=== PATIENT | female | born 1995 | race Caucasian/White ===

== ENCOUNTER 2017-04-18 13:23 | Inpatient (IN) | payer SELFPAY ==
[~2017-04-18] VITALS: Ht 160 cm; Wt 67.5 kg
[2017-04-18] MEDS ORDERED: PRENAT PO (13:44)
[2017-04-18 13:45] VITALS: Ht 160 cm; Wt 67.5 kg
[2017-04-18 13:46] VITALS: BP 113/72; PULSE 92; RESP 18
[2017-04-18 14:11] LABS: BASOPHILS % 0.2 % (0.0-2.0); EOSINOPHILS % 0.2 % (0.0-7.0); HEMATOCRIT 35.8 % (37.0-47.0); HEMOGLOBIN 11.9 g/dl (12.0-16.0); LYMPHOCYTES # 2.3 10^3/ul (0.8-2.9); LYMPHOCYTES % 20.5 % (18.0-55.0); MEAN CORPUSCULAR HEMOGLOBIN 31.9 pg (29.0-33.0); MEAN CORPUSCULAR HGB CONC 33.2 g/dl (32.0-37.0); MEAN PLATELET VOLUME 12.5 fl (7.4-10.4); MONOCYTE # 0.6 10^3/ul (0.3-0.9); MONOCYTES % 5.6 % (0.0-13.0); NEUTROPHIL # 8.2 10^3/ul (1.6-7.5); NEUTROPHILS % 73.1 % (30.0-74.0); PLATELET COUNT 166 10^3/UL (140-415); RED BLOOD COUNT 3.73 10^6/ul (4.20-5.40); RED CELL DISTRIBUTION WIDTH 12.6 % (11.5-14.5); WHITE BLOOD COUNT 11.2 10^3/ul (4.8-10.8)
[2017-04-18 14:29] LABS: ADD UMIC YES; UR ASCORBIC ACID 20 mg/dL (NEGATIVE); UR BACTERIA FEW /HPF (NONE SEEN); UR BILIRUBIN (Dip) NEGATIVE (NEGATIVE); UR BLOOD (Dip) 2+ mg/dL (NEGATIVE); UR CLARITY CLOUDY (CLEAR); UR COLOR YELLOW (YELLOW); UR GLUCOSE (Dip) NEGATIVE (NEGATIVE); UR KETONES (Dip) 2+ mg/dL (NEGATIVE); UR LEUKOCYTE ESTERASE (Dip) 3+ Leu/ul (NEGATIVE); UR NITRITE (Dip) NEGATIVE (NEGATIVE); UR RBC 13 /HPF (0-5); UR SPECIFIC GRAVITY (Dip) 1.015 (1.003-1.030); UR SQUAMOUS EPITHELIAL CELL FEW /HPF (FEW); UR TOTAL PROTEIN (Dip) NEGATIVE (NEGATIVE); UR UROBILINOGEN (Dip) NEGATIVE (NEGATIVE)
[2017-04-18] MEDS ORDERED: LACTATED RINGER'S 1,000 ML IV ONE ×2 (15:00→20:25)
--- NOTE | 2017-04-18 15:28 | RADRPT ---
PROCEDURE: US OB biophysical profile. CLINICAL INDICATION: decreased movements, labor TECHNIQUE: Multiple sonographic images of the pelvis were obtained. The images were reviewed on a PACS workstation. COMPARISON: No prior studies are available for comparison. FINDINGS: There is a single viable intrauterine gestation. Cardiac activity is present with 138 beats per min [place]. There is a vertex presentation. The placenta is posterior. There is no evidence of placental abruption. There is a normal amount of amniotic fluid with an NEELIMA = 14.6 cm. Biophysical profile: movement 2/2 tone 2/2. breathing 2/2 NEELIMA 2/2 Total 03/06 RPTAT: AA . IMPRESSION: Normal biophysical profile. . .Sunny Luna MD, Date Time Electronically viewed and signed by .Sunny Luna MD, MD on 04/18/2017 15:27 .S/
--- NOTE | 2017-04-18 15:30 | RADRPT ---
PROCEDURE: US OB. CLINICAL INDICATION: Size and dates , labor TECHNIQUE: Multiple sonographic images of the pelvis and gravid uterus were obtained. The images were reviewed on a PACS workstation. COMPARISON: No prior studies are available for comparison. FINDINGS: There is a single viable intrauterine gestation. Cardiac activity is present with 148 beats per min [place]. There is a vertex presentation. The placenta is posterior fundal. There is no evidence of placental abruption. There is a normal amount of amniotic fluid with an NEELIMA = 14.6 cm. Measurements were made in order to determine age. The results are as follows: BPD =9.1 cm HC =32 cm AC =32.6 cm FL =6.7 cm Estimated gestational age of approximately 36 weeks and 0 days based on ultrasound measurements. Clinical age: 37 weeks and 3 days. The estimated date of delivery is 05/16/17, based on ultrasound measurements. The EFW = 2817 g, 22.3%, based on LMP age. RPTAT: AA IMPRESSION: Single viable intrauterine gestation of approximately 36 weeks and 0 days based on ultrasound measu rements. .Sunny Luna MD, Date Time Electronically viewed and signed by .Sunny Luna MD, on 04/18/2017 15:30 .S/
[2017-04-18] MEDS ORDERED: BUTORPHANOL 2 MG INJ IV ONE (16:00)
[2017-04-18] MEDS: LACTATED RINGER'S 1,000 ML IV SCH ×3 (18:59→22:50)
[2017-04-18] MEDS ORDERED: OXYTOCIN 30 UNITS/LR 500 ML IV SCH ×2 (19:00)
[2017-04-18] MEDS ORDERED: AMPICILLIN 2 GM/NS (PMX) 100 ML IV ONE (19:00)
[2017-04-18] MEDS ORDERED: OXYTOCIN 30 UNITS/LR 500 ML IV PRN (19:00)
[2017-04-18] MEDS ORDERED: MISOPROSTOL 200 MCG TAB PR PRN (19:00)
[2017-04-18] MEDS ORDERED: BUTORPHANOL 2 MG INJ IV PRN (19:00)
[2017-04-18] MEDS ORDERED: LIDOCAINE 1% (MPF) 30 ML INJ INJ PRN (19:00)
[2017-04-18] MEDS ORDERED: CARBOPROST 250 MCG INJ IM PRN (19:00)
[2017-04-18] MEDS ORDERED: METHYLERGONOVINE 0.2 MG INJ IM PRN (19:00)
[2017-04-18 19:44] LABS: INR 0.84; PROTIME 11.5 Sec (12.2-14.2); PT RATIO 0.9
[2017-04-18 19:45] LABS: PARTIAL THROMBOPLASTIN TIME 29.1 Sec (25.0-35.0)
[2017-04-18] MEDS ORDERED: CITRIC ACID/NA CITRATE 30 ML CUP ONE (20:22)
[2017-04-18] MEDS ORDERED: ONDANSETRON 4 MG INJ ONE (20:22)
[2017-04-18] MEDS ORDERED: ONDANSETRON 4 MG INJ IV STA (20:26)
[2017-04-18] MEDS ORDERED: FENTAnyl 2MCG/ML-ROPIV 0.2% 100 ML ONE (20:28)
[2017-04-18] MEDS ORDERED: NALBUPHINE HCL (10 MG/1 ML) INJ IV PRN (20:30)
[2017-04-18] MEDS ORDERED: FENTAnyl 2MCG/ML-ROPIV 0.2% 100 ML BAG EPI SCH (20:30)
[2017-04-18] MEDS ORDERED: CITRIC ACID/NA CITRATE 30 ML CUP PO ONE ×2 (20:30)
[2017-04-18] MEDS ORDERED: ONDANSETRON 4 MG INJ IV ONE (20:30)
[2017-04-18] MEDS ORDERED: NALOXONE (0.4 MG/ML) INJ IV PRN (20:30)
[2017-04-18] MEDS ORDERED: morphine 2 MG INJ IV PRN (20:30)
[2017-04-18] MEDS ORDERED: ONDANSETRON 4 MG INJ IV PRN (20:30)
[2017-04-18] MEDS ORDERED: DIPHENHYDRAMINE 50 MG INJ IV PRN (20:30)
[2017-04-18] MEDS ORDERED: TRIMETHOBENZAMIDE 100 MG/ML VIAL IM PRN (20:30)
[2017-04-18] MEDS ORDERED: LACTATED RINGER'S 1,000 ML IV PRN (20:30)
[2017-04-18] MEDS ORDERED: KETOROLAC 30 MG INJ IV PRN (20:30)
[2017-04-18] MEDS ORDERED: morphine 4 MG/ML VIAL IV PRN (20:30)
[2017-04-18] MEDS ORDERED: AMPICILLIN 1 GM/NS (PMX) 50 ML IV SCH (23:00)
[2017-04-18] MEDS ORDERED: DEXTROSE 5%-LR 1,000 ML IV PRN (23:30)
[2017-04-18 23:35] LABS: BARBITURATES Negative (NEGATIVE); BENZODIAZEPINES Negative (NEGATIVE); CANNABINOIDS Positive (NEGATIVE); COCAINE Negative (NEGATIVE); OPIATES Negative (NEGATIVE)
[2017-04-18] MEDS ORDERED: MINERAL OIL LIGHT 10 ML VIAL ONE (23:54)
[2017-04-19 00:45] LABS: CBV Base Excess -3.2 mmol/L; CBV COHb 0.1 %; CBV Total Hemglobin 18.4 g/dl; Cord Blood Venous pO2 11.1 mmHG (15.0-45.0); MODE ROOM AIR; MetHgb Cord Venous 1.8 %; Sample Type Blood venous
--- NOTE | 2017-04-19 00:54 | LDN ---
Date/Time of Note Date/Time of Note DATE: 04/19/17 TIME: 00:52 Delivery Summary 04/19/2017 . Patient had been managed during labor by primary OB. I was asked to perform the delivery due to nonavailability of the attending physician Weeks of Gestation term, Assisted Vaginal Delivery: Vacuum Placenta Delivered: Spontaneously Meconium: none Episiotomy: No Perineal laceration: 2 Laceration repair: Second-degree perineal and vaginal laceration repaired using 2-0 and 3-0 Vicryl Anesthesia type: Epidural Estimated blood loss: 300 Sponge & Needle done & correct: Yes All needle counts correct: Yes Any foreign bodies felt in the: No Problems: Delivery Information Sex Infant Sex: female Apgars 1 Minute: 8 5 Minute: 9 Suctioning Nose & mouth suctioned at josh: Yes Delee suction performed: Yes Umbilical Cord Umbilical cord with: 3 Vessels Cord presentations: nuchal cord Nuchal cord present X: 1 Cord Blood was obtained: Yes JACE ALMAZAN MD Apr 19, 2017 00:54
[2017-04-19] MEDS ORDERED: LANOLIN 7 GM TUBE TOP PRN (01:00)
[2017-04-19] MEDS ORDERED: METHYLERGONOVINE 0.2 MG INJ IM PRN (01:00)
[2017-04-19] MEDS ORDERED: OXYTOCIN 30 UNITS/LR 500 ML IV PRN (01:00)
[2017-04-19] MEDS ORDERED: hydrOXYzine HCL 100 MG INJ IM PRN (01:00)
[2017-04-19] MEDS ORDERED: DIPHENHYDRAMINE 25 MG CAP PO PRN (01:00)
[2017-04-19] MEDS ORDERED: CARBOPROST 250 MCG INJ IM PRN (01:00)
[2017-04-19] MEDS ORDERED: DIPHENHYDRAMINE 50 MG INJ IV PRN (01:00)
[2017-04-19] MEDS ORDERED: DIPHENHYDRAMINE 50 MG INJ IM PRN (01:00)
[2017-04-19] MEDS ORDERED: MISOPROSTOL 200 MCG TAB PR PRN (01:00)
[2017-04-19] MEDS ORDERED: ACETAMINOPHEN 325 MG TAB PO PRN (01:00)
[2017-04-19] MEDS ORDERED: HYDROCODONE/APAP (5/325) TAB PO PRN (01:00)
[2017-04-19] MEDS ORDERED: morphine 4 MG/ML VIAL IV PRN (01:00)
[2017-04-19] MEDS ORDERED: ONDANSETRON 4 MG INJ IV PRN (01:00)
[2017-04-19] MEDS ORDERED: METHYLERGONOVINE 0.2 MG TAB PO PRN (01:00)
[2017-04-19] MEDS ORDERED: WITCH HAZEL/GLYCERIN PAD PR PRN (01:00)
--- NOTE | 2017-04-19 01:11 | DELSUM ---
Delivery Summary A-C Datetime Report Generated by CPN: 04/19/2017 01:11 DELIVERY PERSONNEL Human Performance Professor: Roldan, Sabina MATERNAL INFORMATION Delivery Anesthesia: Epidural Medications in Delivery: 30 UNIT PITOCIN Estimated Blood Loss (ml): 300 Placenta Cultured: No Maternal Complications: None LABOR SUMMARY EDC: 05/06/2017 00:00 No. Babies in Womb: 1 Attempted: No Labor Anesthesia: Epidural LABOR INFORMATION Reason for Induction: Not Applicable Onset of Labor: 04/17/2017 04:00 Complete Dilatation: 04/18/2017 23:45 Oxytocin: N/A Group B Beta Strep: Not Done Antibiotics # of Doses: 2 Antibiotics Time of Last Dose: 04/18/2017 23:04 Steroids Given: None Reason Steroids Not Administered: Not Applicable Other Reason Not Administered: TERM MEMBRANES Membranes Rupture Method: Spontaneous Membranes Rupture Method: Artificial Rupture of Membranes: 04/18/2017 23:45 Length of Rupture (hr): 0.28 Amniotic Fluid Color: Clear Amniotic Fluid Color: Clear Amniotic Fluid Amount: Small Amniotic Fluid Amount: Small STAGES OF LABOR Stage 1 hr: 43 Stage 1 min: 45 Stage 2 hr: 0 Stage 2 min: 17 Stage 3 hr: 0 Stage 3 min: 5 Total Time in Labor hr: 44 Total Time in Labor min: 7 VAGINAL DELIVERY Episiotomy: None Laceration Extension: Second Degree Laceration Type: Perineal; Vaginal Laceration Repair: Yes Initial Vag Sponge Count: 10 Final Vag Sponge Count: 10 Initial Vag Sharps Count: 1 Final Vag Sharps Count: 3 Sponge Count Correct: Yes; Vaginal Sweep Performed Sharps Count Correct: Yes Count Comment: 2 SHARPS ADDED TO FIELD BABY A INFORMATION Infant Delivery Date/Time: 04/19/2017 00:02 Method of Delivery: Vaginal Born in Route : No : N/A Forceps: N/A Vacuum Extraction: Successful Shoulder Dystocia : N/A ASSISTED DELIVERY BABY A Indication for Assisted Delivery: BRADYCARDIA Catheter Prior to Procedure: Yes Station Vacuum/Forcep Apply: 3 Position Vacuum/Forcep Apply: Left Occipital Anterior Vacuum Number of Pulls: 3 Vacuum Number of PopOffs: 2 Vacuum Maximum Pressure Obtained: 75 Reduce Pressure btwn Ctx: Yes Vacuum Bathroom Tiling Professional: KIWI Total Time Vacuum Applied: 30 SECONDS SHOULDER DYSTOCIA BABY A Delivery Date/Time: 04/19/2017 00:02 PRESENTATION/POSITION BABY A Presentation: Cephalic Cephalic Presentation: Vertex Vertex Position: Left Occipital Anterior Breech Presentation: N/A PLACENTA INFORMATION BABY A Placenta Delivery Time : 04/19/2017 00:07 Placenta Method of Delivery: Spontaneous Placenta Status: Delivered SCORES BABY A Heart Rate 1 min: >100 bpm Resp Effort 1 min: Good Cry Reflex Irritability 1 min: Cough/Sneeze/Pulls Away Muscle Tone 1 min: Active Motion Color 1 min: Blue/Pale Resuscitation Effort 1 min: Tactile Stimulation SCORE 1 MIN: 8 Heart Rate 5 min: >100 bpm Resp Effort 5 min: Good Cry Reflex Irritability 5 min: Cough/Sneeze/Pulls Away Muscle Tone 5 min: Active Motion Color 5 min: Body [place], Extremit Blue Resuscitation Effort 5 min: Tactile Stimulation SCORE 5 MIN: 9 INFORMATION BABY A Gestational Age at Delivery: 37.4 Gestational Status: Early Term- 37- 38.6 Weeks Outcome : Liveborn Condition : Stable Sex: Female IDENTIFICATION/MEDS BABY A ID Band Number: [id number] ID Band Location: Right Leg; Left Arm Sensor Applied: Yes Sensor Number: [id number] Sensor Location : Cord Clamp Vitamin K Given : Not Given Erythromycin Given: Not Given WEIGHT/LENGTH BABY A Infant Birthweight (gm): 2595 Infant Weight (lb): 5 Weight (oz): 12 Infant Length (in): 18.00 Length (cm): 45.72 CORD INFORMATION BABY A No. Cord Vessels: 3 Nuchal Cord : Around Neck x1, Tight Cord pH Baby Venous: 7.22 Cord Blood Taken: No Infant Suction: Mouth; Nose ASSESSMENT BABY A Complications: None Physical Findings at Delivery: Within Normal Limits Infant Respirations: Appears Normal Communications Executive/ALS Called : No Infant Care By: Cande MENDOZA Transferred To: Remains with Mother
[2017-04-19 02:10] VITALS: BP 128/64; PULSE 71; RESP 19
[2017-04-19] MEDS: LACTATED RINGER'S 1,000 ML IV* SCH ×3 (05:30→16:54)
[2017-04-19] MEDS: IBUPROFEN 600 MG TAB PO SCH ×3 (05:30→17:36)
[2017-04-19 06:13] LABS: HEMATOCRIT 32.4 % (37.0-47.0); HEMOGLOBIN 10.9 g/dl (12.0-16.0)
[2017-04-19 08:40] VITALS: BP 123/59; PULSE 81; RESP 16
[2017-04-19] MEDS: SENNA/DOCUSATE NA (8.6MG/50MG) TAB PO SCH ×2 (09:15→21:54)
[2017-04-19] MEDS: PRENATAL VITAMIN PO SCH (09:15)
[2017-04-19 12:41] VITALS: BP 109/64; PULSE 78; RESP 16
[2017-04-19 16:23] VITALS: BP 121/70
[2017-04-19 20:30] VITALS: BP 115/73; PULSE 73; RESP 18
[2017-04-20] MEDS: IBUPROFEN 600 MG TAB PO SCH ×4 (00:37→17:43)
[2017-04-20 04:00] VITALS: BP 103/68; PULSE 103
[2017-04-20 08:30] VITALS: BP 118/76; PULSE 77; RESP 16
[2017-04-20] MEDS: PRENATAL VITAMIN PO SCH (09:21)
[2017-04-20] MEDS: SENNA/DOCUSATE NA (8.6MG/50MG) TAB PO SCH ×2 (09:21→21:08)
[2017-04-20 13:01] LABS: RUBELLA ANTIBODY - IGG 1.17 index
[2017-04-20 16:30] VITALS: BP 109/64; PULSE 75; RESP 14
[2017-04-20 20:00] VITALS: BP 122/69; PULSE 78; RESP 20
[2017-04-21] MEDS: IBUPROFEN 600 MG TAB PO SCH ×3 (02:06→11:25)
[2017-04-21 04:00] VITALS: BP 116/59; PULSE 74; RESP 17
[2017-04-21 08:00] VITALS: BP_SYST 109; BP_SYST 123; BP_DIAS 59; BP_DIAS 71; RESP 18
[2017-04-21] MEDS ORDERED: VARICELLA VACCINE LIVE/PF 1,350 UNIT/0.5 ML ML SC* ONE (09:00)
[2017-04-21] MEDS ORDERED: DIPHTH/TET/ACEL PERTUSS (ADULT) 0.5 ML VIAL IM* ONE (09:00)
[2017-04-21] MEDS: SENNA/DOCUSATE NA (8.6MG/50MG) TAB PO SCH (09:32)
[2017-04-21] MEDS: PRENATAL VITAMIN PO SCH (09:32)
== END 2017-04-21 16:30 | disposition home or self-care (01) | DRG 775 ==
LOC: L-D 13:23 → OBT 13:23 → L-D 18:34 → PP1 04-19 02:33
PROVIDERS: ADMIT Obstetrics & Gynecology; ATTEND Obstetrics & Gynecology
PROC: 10E0XZZ Delivery of Products of Conception, External Approach (ICD-10-PCS; principal; 2017-04-19)
PROC: 0KQM0ZZ Repair Perineum Muscle, Open Approach (ICD-10-PCS; 2017-04-19)
PROC: 0UQGXZZ Repair Vagina, External Approach (ICD-10-PCS; 2017-04-19)
PROC: 3E033VJ Introduction of Other Hormone into Peripheral Vein, Percutaneous Approach (ICD-10-PCS; 2017-04-19)
DX: O69.81X0 Labor and delivery complicated by cord around neck, without compression, not applicable or unspecified (principal); O71.4 Obstetric high vaginal laceration alone; O70.1 Second degree perineal laceration during delivery; Z37.0 Single live birth; Z3A.37 37 weeks gestation of pregnancy
CPT/HCPCS: 36415; 62319; 76815; 76818; 80307; 81001; 82803; 85014; 85018; 85025; 85610; 85730; 86592; 86762; 86850; 86900; 86901; 87340; 90715; 90716; 99464; J0290; J0595; J2405; J2590; J3010; J7120